=== PATIENT | female | born 1975 | race Hispanic/Latino ===

== ENCOUNTER 2018-11-08 21:24 | Inpatient (IN) | payer SELFPAY ==
[2018-11-08] MEDS ORDERED: Morphine 4 MG/ML VIAL ONE ×2 (21:50→23:26)
--- NOTE | 2018-11-08 22:27 | RAD ---
Radiograph left leg tibia-fibula 2 views: DATE: 11/08/2018 Time: 10:04 PM HISTORY: 42-year-old female status post trauma COMPARISON: None FINDINGS: Oblique-spiral fracture of the distal tibial metaphysis with approximately 10-15% bone width lateral displacement, but without significant angulation, of main distal fragment. Several comminuted butterfly fracture fragments, some moderately displaced. Oblique fracture of distal fibular diaphysis, with mild lateral angulation of distal fragment. No sig nificant angulation in anteroposterior dimension. IMPRESSION: Acute, traumatic, displaced, spiral-oblique, comminuted fractures of the distal tibial metadiaphysis and distal fibular diaphysis.
[2018-11-08 23:06] LABS: #Basophils 0.1 thou/uL (0.0-0.2); #Eosinphils 0.1 thou/uL (0.0-0.7); #Monocytes 0.6 thou/uL (0.11-0.59); #Neutrophils 9.1 thou/uL (1.40-6.50); %Basophils 0.5 % (0.0-1.0); %Eosinophils 0.9 % (0.0-10.0); %Lymphocytes 16.9 % (21.0-51.0); %Monocytes 5.2 % (0.0-10.0); %Neutrophils 76.5 % (42.0-75.0); Hemoglobin 12.5 g/dL (12.0-16.0); Mean Corpuscular HGB CONC 34.4 g/dL (32.0-36.0); Mean Corpuscular Hemoglobin 32.2 pg (27.0-31.0); Mean Corpuscular Volume 93.6 fL (78.0-98.0); Mean Platelet Volume 6.6 fL (7.4-10.4); Platelet Count 346 thou/uL (130-400); RBC Distribution Width 11.6 % (11.5-14.5); Red Blood Cell (RBC) Count 3.87 mill/uL (4.20-5.40); White Blood Cell (WBC) Count 11.9 thou/uL (4.8-10.8)
--- NOTE | 2018-11-08 23:08 | RAD ---
RADIOGRAPH CHEST 1 VIEW: DATE: 11/08/2018 HISTORY: 42-year-old female for preoperative clearance FINDINGS: There are no airspace densities, pulmonary edema, pneumothorax, or cardiomegaly. The lateral costophr enic angles are sharp. IMPRESSION: No acute cardiopulmonary findings.
[2018-11-08 23:18] LABS: INR-International Normal Ratio 0.9; Prothrombin Time 12.6 SEC (12.0-14.7)
[2018-11-08 23:26] LABS: Anion Gap 15 mmol/L (10-20); BUN (Urea Nitrogen) 22 mg/dL (7.0-18.7); Calc. Creatinine Clearance 0 mL/min (70-130); Calcium 9.3 mg/dL (7.8-10.44); Carbon Dioxide 19 mmol/L (22-29); Chloride 108 mmol/L (98-107); Estimated GFR-MDRD Greater than 90; Glucose 101 mg/dL (70-105); Magnesium 2.1 mg/dL (1.6-2.6); Potassium 3.6 mmol/L (3.5-5.1); Sodium 138 mmol/L (136-145)
[2018-11-08] MEDS ORDERED: Promethazine HCl 25 MG/ML VIAL IM PRN (23:28)
[2018-11-08] MEDS ORDERED: Dextrose 5% in Water 1,000 ML IV PRN (23:28)
[2018-11-08] MEDS ORDERED: Morphine 4 MG/ML VIAL SLOW IVP PRN (23:28)
[2018-11-08] MEDS ORDERED: Dextrose 50% Abboject 50 ML SYRINGE SLOW IVP PRN (23:28)
[2018-11-08] MEDS ORDERED: Ondansetron PF 4 MG/2 ML Vial IVP PRN (23:28)
[2018-11-08] MEDS ORDERED: hydrALAZINE 20 MG/ML VIAL SLOW IVP PRN (23:28)
[2018-11-08] MEDS ORDERED: Cyclobenzaprine 10 MG TAB PO PRN (23:31)
[2018-11-08] MEDS ORDERED: traMADol HCl 50 MG TAB PO PRN (23:31)
[2018-11-09] MEDS ORDERED: Potassium Phosphate 15 MMOL in Sodium Chloride 0.9% 250 ML 250 ML IVPB SCH (01:00)
[2018-11-09] MEDS: Sodium Chloride 0.9% 1,000 ML IV SCH ×3 (01:01→23:56)
[2018-11-09] MEDS: Acetaminophen 1,000 MG in Premix Bag 1 BAG IVPB SCH ×4 (01:04→19:39)
[2018-11-09] MEDS: traMADol HCl 50 MG TAB PO PRN ×2 (01:41→19:40)
[2018-11-09 01:52] VITALS: BMI 29.5
--- NOTE | 2018-11-09 02:20 | HP ---
TRAUMA SURGEON: Jeremy Ahmadi MD. CONSULTING PHYSICIAN: Jc Canas MD. HISTORY OF PRESENT ILLNESS: The patient is a 42-year-old female who presented to the emergency department after a mechanical fall off a curb, complaining of left lower extremity pain. She denies hitting her head or loss of consciousness. Evaluation by the emergency room physician demonstrated the patient had a left distal tib-fib fracture. She denies numbness or tingling. Ortho was consulted and plan is to take the patient to the OR in the morning. REVIEW OF SYSTEMS: All additional 10-point review of systems is negative except as indicated above. PAST MEDICAL HISTORY: Fibromyalgia and hypothyroidism. PAST SURGICAL HISTORY: C-sections x3 with no complications. SOCIAL HISTORY: The patient denies tobacco and drug use. She does drink alcohol socially. She is visiting from [place]. She does not live in the [facility]. MEDICATIONS: Synthroid 75 mcg once a day. ALLERGIES: NO KNOWN DRUG ALLERGIES; HOWEVER, THE PATIENT IS ALLERGIC TO SHRIMP. PHYSICAL EXAMINATION: PRIMARY SURVEY: Airway intact. Adequate breath sounds bilaterally. 2+ pulses in the bilateral radials, femorals, and DPs. GCS is 15. Gross motor and sensation are intact. No laceration, bruising, or external bleeding. SECONDARY SURVEY: HEAD: Normocephalic. No gross palpable skull deformities or tenderness. EYES: Pupils 3 to 2, equal, round, reactive to light bilaterally. ENT: No hemotympanum, no epistaxis, no septal hematoma. Midface stable to manipulation. No blood in the oropharynx. Dentition is intact. No anterior neck injury/crepitus/tenderness. C-spine; no step-offs or deformities, nontender, C-collar not in place. CHEST: Nontender. No crepitus or abrasions. No ecchymosis noted. Equal chest movement. ABDOMEN: Soft, nontender, nondistended. PELVIS: Stable to manipulation, nontender. No abrasions or ecchymosis noted. RECTAL: Deferred. GENITOURINARY: Deferred. EXTREMITIES: No gross deformities. Left lower extremity with splint that is in place, clean and dry. 2+ pulse in the bilateral radials, femorals, and DPs. BACK/SPINE: No step-offs or tenderness to palpation of the thoracic or lumbar spine. No abrasions or ecchymosis noted. Previous right-sided back pain as the patient is currently on her menstrual cycle. NEUROLOGIC: 5/5 strength in the bilateral travel ticketing reviewer, plantar flexion, and dorsiflexion. Gross normal sensation x4 extremities. LABORATORY FINDINGS: White count 11.9, hemoglobin 12.5, hematocrit 36.2, platelets 346. INR 0.9. Sodium 138, potassium 3.9, chloride 108, carbon dioxide 19, BUN 22, creatinine 0.69, glucose 101, phosphorus 3.0, magnesium 2.1. DIAGNOSTIC FINDINGS: X-ray of the left tib-fib demonstrates acute traumatic displaced spiral oblique comminuted fracture of the distal tibial metadiaphysis and distal fibular diaphysis. Chest x-ray demonstrates no acute cardiopulmonary findings. ASSESSMENT: 1. Status post mechanical fall from standing. 2. Left distal tibia and fibula fracture. 3. History of hypothyroidism and fibromyalgia. PLAN: The patient will be admitted to the surgical floor under the trauma surgery team. Orthopedic Surgery has been consulted and plans to take the patient to the OR tomorrow. She will be n.p.o. after midnight. She will receive fluid via IV. We will also replace potassium and phosphorus as they were mildly low. Postoperatively, she will work with Physical and Occupational Therapy and will likely be able to be discharged home if she could ambulate with crutches or a walker. The patient does report that she would prefer to take her home Synthroid and we will give the medications to Pharmacy to verify. The patient has been discussed with Dr. Ahmadi before this dictation. Job ID: [id number]
[2018-11-09 05:39] LABS: #Lymphocytes 2.1 thou/uL (1.20-3.40); #Monocytes 0.8 thou/uL (0.11-0.59); #Neutrophils 8.2 thou/uL (1.40-6.50); %Basophils 0.3 % (0.0-1.0); %Eosinophils 0.3 % (0.0-10.0); %Lymphocytes 18.7 % (21.0-51.0); %Monocytes 7.5 % (0.0-10.0); %Neutrophils 73.2 % (42.0-75.0); Hemoglobin 11.2 g/dL (12.0-16.0); Mean Corpuscular HGB CONC 33.9 g/dL (32.0-36.0); Mean Corpuscular Hemoglobin 31.7 pg (27.0-31.0); Mean Corpuscular Volume 93.7 fL (78.0-98.0); Mean Platelet Volume 6.5 fL (7.4-10.4); Platelet Count 313 thou/uL (130-400); RBC Distribution Width 11.5 % (11.5-14.5); Red Blood Cell (RBC) Count 3.54 mill/uL (4.20-5.40); White Blood Cell (WBC) Count 11.1 thou/uL (4.8-10.8)
[2018-11-09 05:58] LABS: Anion Gap 13 mmol/L (10-20); BUN (Urea Nitrogen) 18 mg/dL (7.0-18.7); Calc. Creatinine Clearance 151 mL/min (70-130); Calcium 8.8 mg/dL (7.8-10.44); Carbon Dioxide 21 mmol/L (22-29); Chloride 107 mmol/L (98-107); Estimated GFR-MDRD Greater than 90; Glucose 104 mg/dL (70-105); Phosphorus 3.8 mg/dL (2.3-4.7); Potassium 3.9 mmol/L (3.5-5.1); Sodium 137 mmol/L (136-145)
[2018-11-09] MEDS: Ibuprofen 800 MG TAB PO SCH ×3 (06:36→23:56)
[2018-11-09] MEDS: Polyethylene Glycol 3350 17 GM Packet PO SCH (08:18)
[2018-11-09] MEDS: Senokot S 8.6-50 MG TAB PO SCH ×2 (08:18→19:41)
--- NOTE | 2018-11-09 08:18 | RAD ---
LEFT ANKLE 3 VIEWS: HISTORY: Known fracture. FINDINGS: Fiberglass cast is identified. Comminuted distal fibula and tibia fractures are noted. Alignment is near anatomic. IMPRESSION: Distal tibia and fibula fractures. POS: SAMIR
--- NOTE | 2018-11-09 09:40 | CON ---
DATE OF CONSULTATION: CHIEF COMPLAINT: Left tibia and fibular fracture. HISTORY OF PRESENT ILLNESS: Ms. Krueger is a 42-year-old female, who presents to the emergency department after a fall. She tripped off a curb. She twisted her left leg. She denies hitting her head and there was no loss of consciousness. She was found to have a displaced left distal tibia and fibular fracture. She is visiting from [place]. She was bringing her son here to start college. She has a sister visiting with her. REVIEW OF SYSTEMS: Positive for left leg pain. Otherwise, negative 10-point review of systems. PAST SURGICAL HISTORY: sections without complication. PAST MEDICAL HISTORY: Fibromyalgia and hypothyroidism. SOCIAL HISTORY: The patient denies tobacco, alcohol, or drug use. She lives in [place]. MEDICATIONS: Synthroid. ALLERGIES: NO KNOWN DRUG ALLERGIES. PHYSICAL EXAMINATION: VITAL SIGNS: Temperature is 99.2, pulse is 70, respiratory rate is 14, oxygen saturation 97%, and blood pressure is 128/79. GENERAL: She is alert. She is oriented, in no apparent distress. RESPIRATORY: Breathing comfortably. ABDOMEN: Soft, nontender, and nondistended. MUSCULOSKELETAL: The patient's left lower extremity is splinted. She is able to flex and extend the toes. Two-second capillary refill. Foot is warm and well perfused. Right lower extremity and upper extremities are atraumatic. IMAGING DATA: X-rays of the left tibia and fibula demonstrate a displaced distal tibia fracture as well as distal fibular fracture with displacement, these are acute. IMPRESSION: Left tibia and fibular fracture, distal. PLAN: At this point, the patient will need to go to the operating room. I have reviewed the risks and benefits, which do include infection, scarring, nerve or vascular injury, nonunion, malunion, hardware failure, and others. Goal of surgery is to provide anatomic reduction and promote healing. Goal is also to promote early mobilization. She will have antibiotic prophylaxis and DVT prophylaxis. She will have pain control. She will need to mobilize with physical therapy. Job ID: [id number]
[2018-11-09] MEDS ORDERED: CEFAZOLIN 2 GM in Premix Bag 1 BAG IVPB SCH (10:30)
[2018-11-09] MEDS ORDERED: ceFAZolin Sodium (SDC) 2 GM/100 ML BAG ONE (13:10)
[2018-11-09] MEDS ORDERED: Fentanyl 100 MCG/2 ML VIAL ONE ×3 (13:20→18:18)
[2018-11-09] MEDS ORDERED: Midazolam HCl 2 mg/2 ml Vial ONE ×2 (13:20→14:33)
[2018-11-09] MEDS ORDERED: Fentanyl 250 MCG/5 ML VIAL ONE (14:54)
[2018-11-09] MEDS ORDERED: Bupivacaine HCl 0.5%/Epinephrine 1:200,000/PF 30 ml Vial ONE (16:58)
--- NOTE | 2018-11-09 17:23 | RAD ---
EXAM: XR Tib Fib Lt Leg 2 View DATE: 11/09/2018 12:00 AM INDICATION: Open reduction internal fixation of the left tibia and fibula COMPARISON: Prior left foreleg radiographs dated November 08, 2018 FINDIN fluoroscopic spot images of the left foreleg. Submitted images demonstrate placement of an intramedullary aleyda spanning the patient's previously see n spiral fracture of the distal tibial metadiaphyseal region. There is a syndesmotic screw in place. There is open reduction internal fixation the patient's previously seen fibular fracture. Frac ture alignment is near anatomic. The instrumentation projects in the expected location. The total fluoroscopic time was 77.8 seconds. Total exposure was 1.96 mCi. IMPRESSION:ORIF of the distal left foreleg fracture.
--- NOTE | 2018-11-09 17:31 | PRG ---
DATE OF SERVICE: 11/09/2018 SUBJECTIVE: This is a 42-year-old female, who had a mechanical fall with a left distal tibia and fibula fracture. The patient had no overnight events. The patient reports that her pain is well controlled. The patient has been n.p.o. since midnight. The patient is pending OR repair by Dr. Simon at approximately 2 o'clock today. OBJECTIVE: VITAL SIGNS: Blood pressure 128/79, SpO2 97% on room air, pulse 70, respirations 14, temperature 99.2. GENERAL: A middle-aged, well-appearing female, sitting up in hospital bed, no acute distress. HEENT: Head, atraumatic and normocephalic. RESPIRATORY: Equal rise and fall of chest, no respiratory distress. CARDIAC: Regular rate, regular rhythm. EXTREMITIES: Moves all extremities, left lower extremity with splint that is in place, clean and dry. NEUROLOGIC: Strength, 5/5. No focal deficits. LABORATORY DATA: WBC 11.1, RBC 3.54, hemoglobin 11.2, hematocrit 33.1. Sodium 137, potassium 3.9, BUN 18, creatinine 0.64, estimated GFR greater than 90, glucose 104, calcium 8.8, phosphorus 3.8, magnesium 2.0. IMPRESSION: 1. Status post mechanical fall from standing. 2. Left distal tibia and fibula fracture. 3. History of hypothyroidism and fibromyalgia. PLAN: Continue supportive care and pain regimen. N.p.o. until surgery. PT/OT consult to evaluate and treat postop. We will place the patient on a regular diet as tolerated postop. The patient was examined by Dr. Lance during morning rounds. The plan was discussed with the patient who agrees. Job ID: [id number]
[2018-11-09] MEDS ORDERED: Promethazine HCl 25 MG/ML VIAL IM PRN (17:42)
[2018-11-09] MEDS ORDERED: HYDROmorphone 2 MG/ML VIAL SLOW IVP PRN (17:42)
[2018-11-09] MEDS ORDERED: Promethazine HCl 25 MG/ML VIAL SLOW IVP PRN (17:42)
[2018-11-09] MEDS ORDERED: Ondansetron HCl/PF 4 MG/2 ML Vial IVP PRN (17:42)
[2018-11-09] MEDS ORDERED: Meperidine HCl/PF 25 MG/ML VIAL ONE (18:04)
[2018-11-09] MEDS ORDERED: Ketorolac Tromethamine 30 MG/ML VIAL IVP SCH (22:30)
[2018-11-09] MEDS ORDERED: Gabapentin 100 MG CAP PO SCH (22:30)
[2018-11-09] MEDS: CEFAZOLIN 2 GM in Premix Bag 1 BAG IVPB SCH (22:57)
[2018-11-09] MEDS: Acetaminophen 500 MG TAB PO SCH (23:01)
--- NOTE | 2018-11-09 23:51 | OP ---
DATE OF PROCEDURE: 11/09/2018 PROCEDURES PERFORMED: 1. Left tibia intramedullary nail. 2. Left fibular fracture open reduction and internal fixation. PREOPERATIVE DIAGNOSIS: Left distal tibia fracture and fibular fracture. POSTOPERATIVE DIAGNOSIS: Left distal tibia fracture and fibular fracture. COMPLICATIONS: None. ESTIMATED BLOOD LOSS: 100 mL. AIRPORT DUTY MANAGER: Yohan Barajas PA-C IMPLANTS: Synthes tibial nail size 345 mm x 10 mm with Crosslock screws, also Synthes 6 hole 1/3 tubular plate with nonlocking screws. INDICATIONS: Ms. Krueger is a 42-year-old female, who fell and fractured her left tibia and fibula. She was indicated for intramedullary nail fixation and open reduction and internal fixation of the fibula. Risks have been reviewed. Risks to include infection, pain, scarring, nerve or vascular injury, nonunion, malunion, and others. DESCRIPTION OF PROCEDURE: Ms. Krueger was identified in the preoperative holding area. Her correct extremity was marked. She was carried to the operating room. She was positioned supine. General anesthesia was induced. A multidisciplinary time-out was performed. The left lower extremity was prepped and draped in sterile fashion. We began the procedure with a lateral incision near the ankle. We dissected down to the subcutaneous tissues. We exposed the underlying fibular fracture, which was highly comminuted and displaced. We pulled length on the fibula. We cleared the bony edges and reduced the fibular fracture back into its anatomic position. At this point, we applied a 1/3 tubular plate along the distal fibula, placing six total screws. We then placed our comminuted bony fragments back into the fracture gap. At this point, we thoroughly irrigated our wound. We took x-ray images in orthogonal planes confirming that our fibular fracture was well reduced and fixed. We closed this distal wound. Next, we flexed the knee. We then opened the anterior aspect of the knee. We dissected down through the subcutaneous tissues to the tibial plateau. We made a medial parapatellar arthrotomy. At this point, we inserted a guidewire at the proximal aspect of the tibia. We overdrilled the guidewire. We then placed our ball-tipped guidewire from proximal to distal across the fracture centering this at the ankle. Finally, we measured a length and we over-reamed the guidewire up to a size 11 mm reamer. We then impacted a 10 mm tibial nail. We placed 2 proximal Crosslock screws followed by 2 distal Crosslock screws. A 10 mm end cap was placed proximally as well. At this point, we took final images. We thoroughly irrigated all wounds and closed appropriately in layers. The patient was taken to the recovery room in good condition without complication. Job ID: [id number]
--- NOTE | 2018-11-10 00:05 | PRG ---
DATE OF SERVICE: SUBJECTIVE: The patient was seen today during the evening rounds. She is postop after fixation of the left distal tib-fib. On my evaluation, she complained of some tingling in her left foot and ankle as well as some pain around her left knee. She reported she had not had anything to eat because she had a decreased appetite, but was taking adequate fluids. She is taking her own home medications. OBJECTIVE: VITAL SIGNS: Postoperatively, the patient is afebrile, hemodynamically stable, and saturating 98% on room air. NEUROLOGIC: GCS is 15. PULMONARY: Equal chest rise and fall. No signs of acute respiratory distress. EXTREMITIES: 2+ pulses in all extremities. No significant swelling noted. Gross motor and sensation intact in all extremities. Left lower extremity with splint that is in place, clean and dry. ASSESSMENT: 1. Status post mechanical fall from curb. 2. Left distal tib-fib fracture, closed, status post repair. 3. History of hypothyroidism and fibromyalgia. PLAN: Patient will receive a one time dose of IV Toradol today. We will continue current pain medications, but we will add gabapentin 100 mg as well. She will get one dose tonight and then start 100 mg t.i.d. tomorrow. We will increase medications as clinically needed. Patient is to work with Physical and Occupational therapy starting tomorrow. She will likely be able to be discharged home. Job ID: [id number]
[2018-11-10] MEDS: Acetaminophen 500 MG TAB PO SCH ×3 (05:16→17:37)
[2018-11-10] MEDS: Ibuprofen 800 MG TAB PO SCH ×3 (05:16→21:21)
[2018-11-10] MEDS: CEFAZOLIN 2 GM in Premix Bag 1 BAG IVPB SCH (05:17)
[2018-11-10] MEDS: Gabapentin 100 MG CAP PO SCH ×3 (08:57→20:22)
[2018-11-10] MEDS: Polyethylene Glycol 3350 17 GM Packet PO SCH ×2 (08:57→09:02)
[2018-11-10] MEDS: Senokot S 8.6-50 MG TAB PO SCH ×3 (08:58→20:24)
--- NOTE | 2018-11-10 11:42 | RAD ---
XR Ankle Rt 3 View STANDARD History: Fracture Comparison: None Findings: Mild bimalleolar soft tissue swelling. There is subtle avulsion fracture of the tip of the lateral malleolus. Impression: Very subtle minimally distracted avulsion fracture lateral malleolus tip.
--- NOTE | 2018-11-10 14:10 | PRG ---
DATE OF SERVICE: 11/10/2018 SUBJECTIVE: Ms. Krueger is a 42-year-old female, who presented to the emergency department after a fall. She tripped and fell off a curb twisting her leg. She was found to have a displaced left distal tib-fib fracture. She is currently in the country visiting from [place]. The patient complained of right ankle swelling, bruising, and pain today, that she noticed when she stood up for physical therapy. She had not noticed this pain before. OBJECTIVE: VITAL SIGNS: Temperature 99.0, pulse 80, respiratory rate 16, O2 saturation 95% on room air, blood pressure 112/71. GENERAL: The patient is awake, alert, oriented x3, in no acute distress. HEART: Regular rate and rhythm. No murmurs, gallops, or rubs. LUNGS: Clear to auscultation bilaterally. No wheezing, rhonchi, or rales. Respiratory effort, nonlabored. ABDOMEN: Soft, nontender, and nondistended. Bowel sounds present. EXTREMITIES: Left lower extremity in Benjamin wrap from knee down. Right lower extremity ecchymosis around the lateral ankle, edema around the ankle, tenderness to the lateral malleolus. No fifth metatarsal tenderness to palpation. Minimal pain with active movement of ankle. No pain elicited with passive movement of ankle. ASSESSMENT: 1. Mechanical ground level fall. 2. Left distal tib-fib fracture, closed, status post open reduction and internal fixation. 3. Minimally displaced avulsion fracture of lateral malleolus tip. PLAN: Ortho is already on the patient's case and has been notified about the avulsion fracture. We will follow their recommendations for treatment of avulsion fracture of right ankle. Continue current pain management. The patient is doing well with Tylenol, Flexeril, Neurontin, ibuprofen, and tramadol. Job ID: [id number] [facility]
[2018-11-10] MEDS ORDERED: Glycerin Adult Supp. (12 ct jar) PR SCH (18:45)
[2018-11-10] MEDS: Aspirin 81 mg Enteric Coated Tablet PO SCH (20:23)
--- NOTE | 2018-11-10 23:05 | PRG ---
DATE OF SERVICE: SUBJECTIVE: Ms. Krueger is a 42-year-old female who sustained a ground level fall. She sustained left distal tib-fib fracture and a right ankle avulsion fracture. She underwent ORIF of left tib-fib fracture with right ankle fracture, conservative treatment. She has been doing good. She is able to work with Physical Therapy. She ambulates independently using a walker. She developed no fever or shortness of breath. She is tolerating regular diet. Her urination is adequate and her bowel movement is normal. She was planned to discharge today, but she developed some episode of palpitation and anxiety and she desired to stay one more night. At the time I was seeing her, she said she was doing very good. She had her bowel movement and her palpitation resolved. She plans to go home earlier tomorrow morning. OBJECTIVE: GENERAL: Patient lying down in bed comfortably with no acute distress. VITAL SIGNS: Stable. HEART: Regular rate and rhythm. LUNGS: Clear bilaterally. ABDOMEN: Soft, nondistended. Bowel sounds are normal. EXTREMITY: The splint of the left lower extremity clean, dry, intact. Neurovascular of the toe intact. Right ankle dressing intact. Neurovascularly intact. ASSESSMENT: 1. Mechanical ground level fall. 2. Left distal tibia-fibula fracture open reduction internal fixation, postop day 2. 3. Minimally displaced avulsion fracture of the right ankle, on conservative treatment, stable. PLAN: Continue supportive care. Continue DVT and gastritis prophylaxis. Patient will be discharged earlier tomorrow morning. Patient understands instruction for using pain medication, aspirin for DVT outpatient prophylaxis. Patient will go to see Dr. Simon on the for dressing change, boot placement, so she can fly to her home country, [place]. Job ID: [id number] [facility]
[2018-11-11] MEDS: Acetaminophen 500 MG TAB PO SCH ×3 (00:01→12:21)
[2018-11-11] MEDS: Ibuprofen 800 MG TAB PO SCH (05:16)
[2018-11-11] MEDS ORDERED: Levothyroxine Sodium 75 MCG TAB PO SCH (06:00)
[2018-11-11] MEDS: Polyethylene Glycol 3350 17 GM Packet PO SCH (10:00)
[2018-11-11] MEDS: Senokot S 8.6-50 MG TAB PO SCH (10:00)
[2018-11-11] MEDS: Gabapentin 100 MG CAP PO SCH (10:00)
[2018-11-11] MEDS: Aspirin 81 mg Enteric Coated Tablet PO SCH (10:00)
[2018-11-11 12:29] VITALS: BP 112/76; TEMP 96.8
--- NOTE | 2018-11-12 10:29 | DIS ---
DATE OF ADMISSION: 11/08/2018 DATE OF DISCHARGE: 11/11/2018 RESIDENT: Margo Gao DO TRAUMA SURGEON: Dr. Lance. Pt seen and evaluated by Dr. Lance on Morning rounds the day of discharge. Discharge plan discussed with him. CONSULTS: 1. Case Management. 2. Orthopedics. 3. PT evaluation. PROCEDURES PERFORMED: Open reduction and internal fixation of the left fibular fracture, left tibia intramedullary nail performed by Dr. Simon on 2018. DIAGNOSES: 1. Mechanical ground level fall. 2. Left distal tib-fib fracture, closed, status post ORIF and hardware placement. 3. Minimally displaced avulsion fracture of lateral malleolus tip of right ankle. DISCHARGE MEDICATIONS: 1. Tramadol 100 mg p.o. q.6 hours p.r.n. 2. Tramadol 50 mg p.o. q.6 hours p.r.n. 3. Levothyroxine 75 mcg daily. 4. Tylenol 1000 mg p.o. q.6 hours. 5. Aspirin 81 mg p.o. b.i.d. 6. Ibuprofen 800 mg q.6 hours. 7. MiraLAX 17 g p.o. daily. HISTORY OF PRESENT ILLNESS/HOSPITAL COURSE: Ms. Krueger is a 42-year-old female , who presented to the emergency department after a fall. She tripped and fell off a curb, twisting her leg. She was found to have a displaced left distal tib-fib fracture, which was repaired by Dr. Simon in the operating room. She was also found to have a right minimally displaced avulsion fracture of the lateral malleolus. This is being managed nonoperatively with a boot. The patient's pain is well controlled and she states that she is ready to go home and feels safe to do so. DISPOSITION: The patient is stable upon discharge with pain control adequate. DISCHARGE INSTRUCTIONS: 1. Location: Home. 2. Diet: Regular diet. 3. Activity: Nonweightbearing to the left lower extremity. 4. Followup: Followup with Dr. Simon in 10 days. Job ID: [id number] [facility]
== END 2018-11-11 12:50 | disposition home or self-care (01) | DRG 494 ==
LOC: ERS 21:24 → SURG A 23:06
PROVIDERS: ADMIT Surgery; ATTEND Surgery
PROC: 0QSH36Z Reposition Left Tibia with Intramedullary Internal Fixation Device, Percutaneous Approach (ICD-10-PCS; principal; 2018-11-08)
PROC: 0QSK04Z Reposition Left Fibula with Internal Fixation Device, Open Approach (ICD-10-PCS; 2018-11-09)
DX: S82.392A Other fracture of lower end of left tibia, initial encounter for closed fracture (principal); M79.7 Fibromyalgia; E03.9 Hypothyroidism, unspecified; W18.30XA Fall on same level, unspecified, initial encounter; S82.61XA Displaced fracture of lateral malleolus of right fibula, initial encounter for closed fracture; Z91.013 Allergy to seafood; Z79.899 Other long term (current) drug therapy; S82.832A Other fracture of upper and lower end of left fibula, initial encounter for closed fracture
CPT/HCPCS: 29515; 36415; 71045; 76000; 80048; 83735; 84100; 85025; 85610; 96374; 96376; C1713; C1769; J0131; J0670; J0690; J1885; J2175; J2250; J2270; J3010; J3370; J7050